=== PATIENT | male | born 1965 | race Caucasian/White ===

== ENCOUNTER 2017-09-18 10:08 | Emergency (ER) | payer OTHER ==
[~2017-09-18] VITALS: Ht 182.9 cm; Wt 99.7 kg
[~2017-09-18 10:08] MED LIST: ALIR1INJ2 SQ; ASPI81TA28 PO; EZET10TA66 PO; METF-384 PO; METO25TA56; PRAS1TAB6 PO; TEMA30CA4 PO
[2017-09-18 10:13] VITALS: TEMP 36.6; Ht 182.9 cm; Wt 99.7 kg
[2017-09-18] MEDS ORDERED: SODIUM CHLORIDE 0.9% 1000ML 1,000 ML IV STA ×2 (10:27→11:52)
[2017-09-18] MEDS ORDERED: MoRPHine SULFATE 4 MG/ML 1 ML CARP\\VIAL IV STA (10:34)
[2017-09-18] MEDS ORDERED: ONDANSETRON INJ 2 MG/ML 2 ML VIAL IV STA (10:34)
--- NOTE | 2017-09-18 10:36 | EMERGENCY ROOM VISIT NOTE ---
History Report prepared by Mary: Riki Singer Under the Supervision of: Dr. Andrez Dai D.O. First contact with patient: 10:26 Chief Complaint: DEHYDRATION Stated Complaint: DEHYDRATION, DIARRHEA, NAUSEA, DIZZY History of Present Illness The patient is a 52 year old male who presents to the Emergency Room with complaints of intermittent nausea and diarrhea that began on Monday 2 days ago. The patient states that he was doing some manual labor on Monday as he was clearing out one attic and moving it to another. The attics were hot and he was exerting himself. After finishing the job the patient developed diffuse/ global/abdominal muscle cramps, nausea, and a headache. He describes his diarrhea as "severe" the patient was vomiting as well. He notes that he was grilling with his family yesterday and started cramping and became diaphoretic as well. The patient does have a history of diabetes as well as multiple stent placement in his heart. Source of History: patient Onset: 2 days ago Position: abdomen Quality: cramping Timing: intermittent Associated Symptoms: + diaphoresis, + nausea, + vomiting, + diarrhea Review of Systems See HPI for pertinent positives & negatives. A total of 10 systems reviewed and were otherwise negative. Past Medical & Surgical Medical Problems: (1) Cervicalgia (2) Chronic Liver Dis Nec (3) Diab Lupis Wo Compl, Type Ii Or Unspec Type, Not Uncntrld (4) Hypertension Nos (5) Kidney stone (6) Pure Hypercholesterolem Family History Cardiovascular disease Heart disease Hypertension Social History Smoking Status: Never Smoker Drug Use: none Marital Status: Housing Status: lives with family Occupation Status: employed Current/Historical Medications Scheduled Aspirin (Aspirin Ec), 81 MG PO DAILY Coenzyme Q10 (Ubidecarenone) (Co Q 10), 100 MG PO BID Ezetimibe (Ezetimibe), 10 MG PO DAILY Metformin Hcl (Glucophage), 1,000 MG PO BID Scheduled PRN Temazepam (Restoril), 30 MG PO HS PRN for Sleep Miscellaneous Medications Alirocumab (Praluent), 150 MG SQ Metoprolol Tartrate (Lopressor) (Lopressor) Allergies Coded Allergies: Statins (Unverified Allergy, Unknown, muscle, 09/18/17) Zolpidem (Unverified Allergy, Unknown, hallucinations, 09/18/17) Physical Exam Vital Signs Date Time Temp Pulse Resp B/P (MAP) Pulse Ox O2 Delivery O2 Flow Rate FiO2 09/18/17 11:38 76 9 92 09/18/17 11:27 130/74 09/18/17 11:08 77 10 09/18/17 10:38 70 14 09/18/17 10:34 70 09/18/17 10:13 36.6 76 20 122/82 95 Room Air Physical Exam CONSTITUTIONAL/VITAL SIGNS: Reviewed / noted above. GENERAL: Non-toxic in appearance. INTEGUMENTARY: Warm, dry, and [place]. HEAD: Normocephalic. EYES: without scleral icterus or trauma. ENT/OROPHARYNX: clear and moist. LYMPHADENOPATHY/NECK: Is supple without lymphadenopathy or meningismus. RESPIRATORY: Lungs clear and equal. CARDIOVASCULAR: Regular rate and rhythm. GI/ABDOMEN: Soft and nontender. No organomegaly or pulsatile mass. No rebound or guarding. Normal bowel sounds. EXTREMITIES: Warm and well perfused. BACK: No CVA tenderness. NEUROLOGICAL: Intact without focal deficits. PSYCHIATRIC: normal affect. MUSCULOSKELETAL: Normally developed with good muscle tone. Medical Decision & Procedures ER Provider Diagnostic Interpretation: Radiology results as stated below per my review and radiologist interpretation: CHEST ONE VIEW PORTABLE CLINICAL HISTORY: EVALUATE ALTERED MENTAL STATUS/WEAKNESS COMPARISON STUDY: 01/27/2016 FINDINGS: The bones soft tissues and hemidiaphragms are normal. The cardiomediastinal silhouette is normal. The lungs are clear. The pulmonary vasculature is normal. IMPRESSION: Negative chest. The above report was generated using voice recognition software. It may contain grammatical, syntax or spelling errors. Electronically signed by: Adalid Ledesma M.D. 09/18/2017 10:47 AM Dictated Date/Time: 09/18/2017 10:46 AM Laboratory Results 09/18/17 10:31 Red Blood Count 5.05, Mean Corpuscular Volume 89.7, Mean Corpuscular Hemoglobin 30.9, Mean Corpuscular Hemoglobin Concent 34.4, Mean Platelet Volume 10.1, Neutrophils (%) (Auto) 48.3, Lymphocytes (%) (Auto) 34.8, Monocytes (%) (Auto) 14.3, Eosinophils (%) (Auto) 1.9, Basophils (%) (Auto) 0.6, Neutrophils # (Auto ) 3.31, Lymphocytes # (Auto) 2.39, Monocytes # (Auto) 0.98, Eosinophils # (Auto ) 0.13, Basophils # (Auto) 0.04 09/18/17 10:31 Test 09/18/17 10:31 White Blood Count 6.86 K/uL (4.8-10.8) Red Blood Count 5.05 M/uL (4.7-6.1) Hemoglobin 15.6 g/dL (14.0-18.0) Hematocrit 45.3 % (42-52) Mean Corpuscular Volume 89.7 fL (80-100) Mean Corpuscular Hemoglobin 30.9 pg (25-34) Mean Corpuscular Hemoglobin Concent 34.4 g/dl (32-36) Platelet Count 242 K/uL (130-400) Mean Platelet Volume 10.1 fL (7.4-10.4) Neutrophils (%) (Auto) 48.3 % Lymphocytes (%) (Auto) 34.8 % Monocytes (%) (Auto) 14.3 % Eosinophils (%) (Auto) 1.9 % Basophils (%) (Auto) 0.6 % Neutrophils # (Auto) 3.31 K/uL (1.4-6.5) Lymphocytes # (Auto) 2.39 K/uL (1.2-3.4) Monocytes # (Auto) 0.98 K/uL (0.11-0.59) Eosinophils # (Auto) 0.13 K/uL (0-0.5) Basophils # (Auto) 0.04 K/uL (0-0.2) RDW Standard Deviation 43.3 fL (36.4-46.3) RDW Coefficient of Variation 13.2 % (11.5-14.5) Immature Granulocyte % (Auto) 0.1 % Immature Granulocyte # (Auto) 0.01 K/uL (0.00-0.02) Prothrombin Time 10.0 SECONDS (9.0-12.0) Prothromb Time International Ratio 1.0 (0.9-1.1) Activated Partial Thromboplast Time 25.7 SECONDS (21.0-31.0) Partial Thromboplastin Ratio 1.0 Anion Gap 10.0 mmol/L (3-11) Est Creatinine Clear Calc Drug Dose 102.9 ml/min Estimated GFR () 95.5 Estimated GFR (Non- 82.4 BUN/Creatinine Ratio 26.4 (10-20) Calcium Level 10.4 mg/dl (8.5-10.1) Magnesium Level 1.9 mg/dl (1.8-2.4) Total Bilirubin 0.4 mg/dl (0.2-1) Direct Bilirubin 0.1 mg/dl (0-0.2) Aspartate Amino Transf (AST/SGOT) 54 U/L (15-37) Alanine Aminotransferase (ALT/SGPT) 104 U/L (12-78) Alkaline Phosphatase 52 U/L (45-117) Total Creatine Kinase 780 U/L (39-308) Creatine Kinase MB 5.0 ng/ml (0.5-3.6) Creatine Kinase MB Ratio 0.6 (0-3.0) Troponin I < 0.015 ng/ml (0-0.045) Total Protein 7.7 gm/dl (6.4-8.2) Albumin 4.1 gm/dl (3.4-5.0) Lipase 310 U/L (73-393) Thyroid Stimulating Hormone (TSH) 0.772 uIu/ml (0.300-4.500) Laboratory results as stated above per my review. Medications Administered Medications (Trade) Dose Ordered Sig/[place]ry Route Start Time Stop Time Status Last Admin Dose Admin Sodium Chloride 1,000 ml @ 999 mls/hr Q1H1M STAT IV 09/18/17 10:27 09/18/17 11:27 DC 09/18/17 10:50 999 MLS/HR Ondansetron HCl (Zofran Inj) 4 mg NOW STAT IV 09/18/17 10:34 09/18/17 10:35 DC 09/18/17 10:51 4 MG Morphine Sulfate (MoRPHine SULFATE INJ) 4 mg NOW STAT IV 09/18/17 10:34 09/18/17 10:35 DC 09/18/17 10:51 4 MG Sodium Chloride 1,000 ml @ 999 mls/hr Q1H1M STAT IV 09/18/17 11:52 09/18/17 12:52 09/18/17 11:58 999 MLS/HR Ketorolac Tromethamine (Toradol Inj) 30 mg NOW STAT IV 09/18/17 11:52 09/18/17 11:53 DC 09/18/17 11:59 30 MG ECG Per My Interpretation Indication: nausea Rate (beats per minute): 76 Rhythm: normal sinus Findings: no acute ischemic change, no ectopy, other (no MARGE, no PVCs) ED Course 1026: Previous medical records were reviewed. The patient was evaluated in room A9B. A complete history and physical examination was performed. 1027: Ordered Sodium Chloride 1000 mL @ 999 mL/hr IV. 1034: Ordered Morphine Sulfate 4 mg IV, Zofran 4 mg IV. 1152: Ordered Toradol 30 mg IV, Sodium Chloride 1000 mL @ 999 mL/hr IV. 1222: On reevaluation, the patient is resting in bed. I discussed the results and findings with the patient. He verbalized agreement of the treatment plan. The patient was discharged home. Medical Decision Differential includes acute coronary syndrome, myocardial infarction, CVA, TIA, anemia, infection, pneumonia, UTI, pyelonephritis, poor nutrition, dehydration, electrolyte disturbance,hypoglycemia. This is a 52-year-old male who presents to the ED with a chief complaint of dehydration and cramping all over. The patient states that he was working in an attic on Monday. He states that it was very hot in the attic and he was moving stuff from one object to another. The patient states that he felt like he was becoming dehydrated. He developed some nausea and diarrhea as well and cramps all over. He feels that he is dehydrated and came to the ED for evaluation. The cramps are the worst part of his symptoms in his nausea is present but he has not had any vomiting. The patient's physical exam was otherwise unremarkable. His vital signs are stable. CBC is normal, BUN is 28, glucose is 150, AST is 54 and ALT is 104. He does report previous history of mild elevations of LFTs. Total CK was 780. Troponin is negative, TSH was normal, EKG shows a normal sinus rhythm, chest x-ray did not show acute process. The patient was hydrated with 2 L normal saline IV. He was given IV Zofran IV morphine as well as some IV Toradol for his symptoms. He was feeling much better. He was felt to be stable for discharge. Medication Reconcilliation Current Medication List: was personally reviewed by me Blood Pressure Screening Patient's blood pressure: Normal blood pressure Impression Primary Impression: Dehydration Additional Impression: Muscle cramping Scribe Attestation The scribe's documentation has been prepared under my direction and personally reviewed by me in its entirety. I confirm that the note above accurately reflects all work, treatment, procedures, and medical decision making performed by me. Departure Information Dispostion Home / Self-Care Referrals Jourdan Ochoa M.D. (PCP) Patient Instructions [facility] Additional Instructions Continue hydrated with oral fluids. Follow-up with your doctor for further care and evaluation in 1-4 days as needed. Return to the emergency department for worsening or new symptoms or any concerns. You have been examined and treated today on an emergency basis only. This is not a substitute for, or an effort to provide, complete comprehensive medical care. It is impossible to recognize and treat all injuries or illnesses in a single emergency department visit. It is therefore important that you follow up closely with your doctor. Call as soon as possible for an appointment. Problem Qualifiers
[2017-09-18] MEDS ORDERED: COEN1CAP17 PO (10:41)
[2017-09-18 10:48] LABS: BASO % 0.6 %; BASO ABS # 0.04 K/uL (0-0.2); EOS % 1.9 %; EOS ABS # 0.13 K/uL (0-0.5); HEMATOCRIT 45.3 % (42-52); HEMOGLOBIN 15.6 g/dL (14.0-18.0); IG# 0.01 K/uL (0.00-0.02); LYMPH % 34.8 %; LYMPH ABS # 2.39 K/uL (1.2-3.4); MEAN CELL VOLUME 89.7 fL (80-100); MEAN CORPUSCULAR HEMOGLOBIN 30.9 pg (25-34); MEAN CORPUSCULAR HGB CONC 34.4 g/dl (32-36); MEAN PLATELET VOLUME 10.1 fL (7.4-10.4); MONO % 14.3 %; MONO ABS # 0.98 K/uL (0.11-0.59); NEUT % 48.3 %; NEUT ABS # 3.31 K/uL (1.4-6.5); PLATELET COUNT 242 K/uL (130-400); RED CELL DISTRIBUTION WIDTH CV 13.2 % (11.5-14.5); RED CELL DISTRIBUTION WIDTH SD 43.3 fL (36.4-46.3); WHITE BLOOD COUNT 6.86 K/uL (4.8-10.8)
--- NOTE | 2017-09-18 10:48 | DIAGNOSTIC IMAGING REPORT ---
CHEST ONE VIEW PORTABLE CLINICAL HISTORY: EVALUATE ALTERED MENTAL STATUS/WEAKNESS COMPARISON STUDY: 01/27/2016 FINDINGS: The bones soft tissues and hemidiaphragms are normal. The cardiomediastinal silhouette is normal. The lungs are clear. The pulmonary vasculature is normal. IMPRESSION: Negative chest. The above report was generated using voice recognition software. It may contain grammatical, syntax or spelling errors. Electronically signed by: Adalid Ledesma M.D. 09/18/2017 10:47 AM Dictated Date/Time: 09/18/2017 10:46 AM
[2017-09-18 10:49] LABS: PTT PATIENT 25.7 SECONDS (21.0-31.0)
[2017-09-18 11:30] LABS: ALBUMIN 4.1 gm/dl (3.4-5.0); ALKALINE PHOSPHATASE 52 U/L (45-117); ALT/SGPT 104 U/L (12-78); AST/SGOT 54 U/L (15-37); BLOOD UREA NITROGEN 28 mg/dl (7-18); CALCIUM 10.4 mg/dl (8.5-10.1); CARBON DIOXIDE 23 mmol/L (21-32); CREATININE 1.05 mg/dl (0.60-1.40); GLUCOSE 150 mg/dl (70-99); LIPASE 310 U/L (73-393); POTASSIUM 4.5 mmol/L (3.5-5.1); SODIUM 134 mmol/L (136-145); TOTAL PROTEIN 7.7 gm/dl (6.4-8.2)
[2017-09-18] MEDS ORDERED: KETOROLAC TROMETHAMINE 30 MG/ML VIAL IV STA (11:52)
[2017-09-18 12:53] VITALS: BP 135/80; PULSE 88; O2SAT 100
== END 2017-09-18 12:55 | disposition home or self-care (01) ==
LOC: C.EDB 10:09 → C.EDA 12:55
DX: E86.0 Dehydration (principal); R25.2 Cramp and spasm; R11.0 Nausea; X50.9XXA Other and unspecified overexertion or strenuous movements or postures, initial encounter; I10 Essential (primary) hypertension; E11.9 Type 2 diabetes mellitus without complications; Z79.84 Long term (current) use of oral hypoglycemic drugs; E78.00 Pure hypercholesterolemia, unspecified; K76.9 Liver disease, unspecified; Z79.899 Other long term (current) drug therapy; Z79.82 Long term (current) use of aspirin; Z88.8 Allergy status to other drugs, medicaments and biological substances